=== PATIENT | female | born 1965 | race Caucasian/White ===

== ENCOUNTER 2017-11-20 18:56 | Emergency (ER) | payer OTHER ==
[~2017-11-20] VITALS: Ht 170.2 cm; Wt 79.7 kg
[2017-11-20] MEDS ORDERED: ULTRAM50 MG PO (20:02)
[2017-11-20 20:31] VITALS: BP 122/71
== END 2017-11-20 20:32 | disposition home or self-care (01) ==
LOC: RME 18:56 → EME 18:56 → RME 20:32
DX: S92.514A Nondisplaced fracture of proximal phalanx of right lesser toe(s), initial encounter for closed fracture (principal); W22.01XA Walked into wall, initial encounter; J45.909 Unspecified asthma, uncomplicated; F32.9 Major depressive disorder, single episode, unspecified; Z98.890 Other specified postprocedural states; Z91.048 Other nonmedicinal substance allergy status
CPT/HCPCS: 73630; 99281; 99284